=== PATIENT | female | born 1990 | race Caucasian/White ===

== ENCOUNTER 2021-10-15 03:39 | Emergency (ER) | payer BC ==
[~2021-10-15] VITALS: Ht 152.4 cm; Wt 89.5 kg
--- NOTE | 2021-10-15 03:56 | PHYS DOC ---
Past Medical History Past Medical History: Hypertension Past Medical History Rheumatoid arthritis ADHD Smoking Status: Never Smoker Alcohol Use: None Drug Use: None General Adult HPI: HPI: Patient is a 31 year old female who presents with about 24-hour history of fevers, chills, diffuse myalgias, arthralgias. She reports bilateral flank pain . She denies cough or chest pain. She reports that she feels short of breath, "just because of the pain, but she denies any actual dyspnea dyspnea on exertion. She denies rash. She denies urinary symptoms. She ports generalized, diffuse abdominal pain, with nausea and vomiting. She reports constipation, though she is passing flatus. LMP within the last month. She has been fully vaccinated against COVID, with booster in August 2021. She has had an influenza vaccine as well. She had contacted her PCP yesterday, and she told her about the flank pain and she was called in a prescription for Nitrofurantoin. Review of Systems: Review of Systems: Constitutional: Fever and chills. Eyes: Denies change in visual acuity. [] HENT: Denies nasal congestion or sore throat. [] Respiratory: Denies cough or shortness of breath. [] Cardiovascular: Denies chest pain or edema. [] GI: Denies abdominal pain, nausea, vomiting and constipation. : Denies urinary symptoms, denies dysuria, hematuria, urgency or frequency. Denies vaginal bleeding. Musculoskeletal: Reports diffuse myalgias and arthralgias. Integument: Denies rash. [] Neurologic: Reports headache. Denies dizziness, focal weakness. Psychiatric: Denies depression or anxiety. [] Heart Score: C/O Chest Pain: No Risk Factors: Risk Factors: DM, Current or recent (<one month) smoker, HTN, HLP, family history of CAD, obesity. Risk Scores: Score 0 - 3: 2.5% MACE over next 6 weeks - Discharge Home Score 4 - 6: 20.3% MACE over next 6 weeks - Admit for Clinical Observation Score 7 - 10: 72.7% MACE over next 6 weeks - Early Invasive Strategies Physical Exam: PE: Constitutional: Well developed, well nourished, no acute distress, non-toxic appearance. She is anxious. HENT: Normocephalic, atraumatic, oropharynx is patent and clear, no exudate or erythema. TMs are clear bilaterally. Eyes: Conjunctiva normal, no discharge. [] Neck: Normal range of motion, no tenderness, supple, no stridor. Trachea is midline. No meningismus. Cardiovascular: Regular rate and rhythm, +2 radial and +2 posterior tibial pulses bilaterally, warm and well perfused, no cyanosis, no peripheral edema Lungs & Thorax: Bilateral breath sounds clear to auscultation, no rales, rhonchi or wheezes. No distress Abdomen: Abdomen is soft, obese, normal bowel sounds, diffuse, nonfocal tenderness to palpation. No focal right lower quadrant or right upper quadrant tenderness, negative Rai's. No palpable masses organomegaly. Mild bilateral CVA tenderness, no rebound tenderness. No flank or abdominal ecchymoses Skin: Warm, dry, no erythema, no rash. [] Back: No tenderness, mild bilateral paraspinal thoracic/CVA tenderness noted. No midline tenderness or step-offs. No deformity. No ecchymoses Extremities: No tenderness, no cyanosis, no clubbing, ROM intact, no edema. [] Neurologic: She is awake, alert, oriented, no facial asymmetry, normal gross motor, normal gross sensation, ambulatory to steady gait, speech is clear and fluent Psychologic: She is anxious EKG: EKG: [] Radiology/Procedures: Radiology/Procedures: [] Course & Med Decision Making: Course & Med Decision Making Pertinent Labs and Imaging studies reviewed. (See chart for details) The patient is given IV fluids, IV Zofran, IV Toradol. She is feeling much better, resting comfortably. She has a nonsurgical abdominal exam. Urinalysis appears to be consistent with urinary tract infection, clinically she has evidence of pyelonephritis. I have discussed all of the findings, differential diagnosis and plan of care with her. I told her to stop taking the Macrobid. She reports that she feels comfortable going home with outpatient treatment for pyelonephritis. She is tolerating oral fluids without difficulty at this time. I discussed home care instructions. I explained that her urine culture is pending, and if there is any need to change antibiotics based on her culture result, she should be notified. Strict return precautions are given. She v simonealizes understanding. Cong Disclaimer: Cong Disclaimer: This electronic medical record was generated, in whole or in part, using a voice recognition dictation system. Departure Departure Impression: Primary Impression: Acute pyelonephritis Disposition: HOME / SELF CARE / HOMELESS Condition: STABLE Patient Instructions: Pyelonephritis, Adult Additional Instructions: Take the full course of antibiotics. Use the pain medicine and nausea medicine as needed/as directed. Make sure you stay hydrated, drink plenty of fluids. Your urine culture is pending, and if there is any need to change antibiotics based on this result, you should be notified, this takes about 48 hours. Do not take the nitrofurantoin that your doctor called in for you, this will not help the kidney infection. Return to the ER for uncontrolled vomiting, more severe pain, dehydration or any other concerns. Scripts Cefdinir (CEFDINIR) 300 Mg Capsule 1 CAP PO BID, #14 CAP Prov: EDUARDA ALCANTAR DO 10/15/21 Ondansetron Hcl (ONDANSETRON HCL) 4 Mg Tablet 1 TAB PO PRN Q6HRS for vomiting, #20 TAB 1 Refill Prov: EDUARDA ALCANTAR DO 10/15/21 Hydrocodone Bit/Acetaminophen (HYDROCODONE-APAP 5-325 ) 1 Tab Tablet 1 TAB PO PRN Q6HRS PRN for PAIN, #15 TAB 0 Refills Prov: EDUARDA ALCANTAR DO 10/15/21 EDUARDA ALCANTAR DO Oct 15, 2021 03:56
[2021-10-15] MEDS ORDERED: KETOROLAC 30 MG/ML VIAL. IVP ONE (04:15)
[2021-10-15] MEDS ORDERED: IV NORMAL SALINE 1000ML BAG 1,000 ML IV ONE (04:15)
[2021-10-15] MEDS ORDERED: ONDANSETRON PF 4 MG/2 ML VIAL. IVP ONE (04:15)
[2021-10-15 04:47] LABS: INFLUENZA A PATIENT NEGATIVE (NEGATIVE); INFLUENZA B PATIENT NEGATIVE (NEGATIVE)
[2021-10-15 04:56] LABS: BASO % 0 % (0-3); EOS # 0.1 x10^3/uL (0.0-0.7); EOS % 0 % (0-3); HEMATOCRIT 35.3 % (36.0-47.0); HEMOGLOBIN 11.9 g/dL (12.0-15.5); LYMPH # 0.8 x10^3/uL (1.0-4.8); LYMPH % 3 % (24-48); MEAN CORPUSCULAR HEMOGLOBIN 32 pg (25-35); MEAN CORPUSCULAR HGB CONC 34 g/dL (31-37); MEAN CORPUSCULAR VOLUME 95 fL (79-100); MONO # 1.2 x10^3/uL (0.0-1.1); MONO % 5 % (0-9); NEUT # 23.1 x10^3/uL (1.8-7.7); NEUT % 92 % (31-73); PLATELET COUNT 322 x10^3/uL (140-400); RED BLOOD COUNT 3.71 x10^6/uL (3.50-5.40); RED CELL DISTRIBUTION WIDTH 12.8 % (11.5-14.5); WHITE BLOOD COUNT 25.2 x10^3/uL (4.0-11.0)
[2021-10-15 05:42] LABS: CALCIUM 8.5 mg/dL (8.5-10.1); CREATININE 1.2 mg/dL (0.6-1.0); GFR 52.7; POTASSIUM 3.9 mmol/L (3.5-5.1)
[2021-10-15 05:50] LABS: PREG TEST PT QUAL NEGATIVE (NEG)
[2021-10-15 05:52] LABS: ALBUMIN 2.9 g/dL (3.4-5.0); ALBUMIN/GLOBULIN RATIO 0.7 (1.0-1.7); MAGNESIUM 1.5 mg/dL (1.8-2.4); TOTAL BILIRUBIN 0.4 mg/dL (0.2-1.0); TOTAL PROTEIN 6.8 g/dL (6.4-8.2)
[2021-10-15 05:56] LABS: BILIRUBIN,URINE NEGATIVE (NEG); CLARITY,URINE CLEAR; COLOR,URINE YELLOW; NITRITE,URINE NEGATIVE (NEG); PH,URINE 6.5 (<5.0-8.0); PROTEIN,URINE 100 mg/dL (NEG-TRACE); UROBILINOGEN,URINE 0.2 mg/dL (0.2 mg/dL)
[2021-10-15 05:57] LABS: % BANDS 24 % (0-9); % BASOS 1 % (0-3); % LYMPHS 4 % (24-48); % MONOS 3 % (0-10); % SEGS 68 % (35-66)
[2021-10-15 05:58] LABS: PLT ESTIMATE ADEQUATE (ADEQUATE); TOXIC VACUOLATION PRESENT
[2021-10-15 06:08] LABS: BACTERIA,URINE MODERATE /HPF (0-FEW); WBC,URINE 20-40 /HPF (0-4)
[2021-10-15] MEDS ORDERED: cefTRIAXone IV Push 1 GM VIAL. IVP ONE (06:15)
[2021-10-15] MEDS ORDERED: HYDR-2761 PO (06:41)
[2021-10-15] MEDS ORDERED: CEFD300C PO (06:41)
[2021-10-15] MEDS ORDERED: ONDA-84 PO (06:41)
[2021-10-15 07:08] VITALS: BP 112/58
--- NOTE | 2021-10-16 17:43 | NUR ---
IP: Attempted to contact pt concerning covid results. No answer, eft a voicemail to return the call. Addendum: 10/16/21 at 1753 by ANTHONY IRWIN RN Pt returned the call. Informed her of negative covid test. She verbalized understanding.
== END 2021-10-15 07:18 | disposition home or self-care (01) ==
LOC: ER 03:39
DX: N10 Acute pyelonephritis (principal); Z20.822 Contact with and (suspected) exposure to COVID-19; I10 Essential (primary) hypertension; M06.9 Rheumatoid arthritis, unspecified; F90.9 Attention-deficit hyperactivity disorder, unspecified type
CPT/HCPCS: 36415; 80053; 81001; 81025; 82550; 83690; 83735; 84703; 85007; 85025; 87086; 87186; 87426; 87428; 96361; 96374; 96375; 99285; J0696; J1885; J2405; J7030; U0003; U0005